=== PATIENT | male | born 1955 | race African-American/Black ===

== ENCOUNTER 2017-09-08 20:30 | Emergency (ER) | payer BC ==
[~2017-09-08] VITALS: Ht 175.3 cm; Wt 91.0 kg
[2017-09-08 20:37] VITALS: BP 140/86
== END 2017-09-09 02:45 | disposition left against medical advice (07) ==
LOC: ER 20:59
DX: F41.9 Anxiety disorder, unspecified (principal); Z53.21 Procedure and treatment not carried out due to patient leaving prior to being seen by health care provider